=== PATIENT | male | born 1965 | race Caucasian/White ===

== ENCOUNTER → 2016-10-21 | Outpatient (CLI) | payer BC ==
--- NOTE | 2016-10-21 22:47 | MR ---
EXAMINATION TYPE: MR shoulder RT wo con DATE OF EXAM: 10/21/2016 5:57 PM COMPARISON: NONE HISTORY: 51-year-old male with right shoulder pain x 5 months, no trauma TECHNIQUE: Multiplanar, multisequence imaging of the right shoulder is performed without contrast. FINDINGS: The long head biceps tendon is intact. Subscapularis tendon is intact. There is mild to moderate degenerative joint space narrowing with marginal spurring and subchondral c hanges at the AC joint. No significant inferior spurring impinging onto the underlying rotator cuff. There is heterogeneous signal of both the supraspinatus and infraspinatus tendons with intermediate s ignal thickening especially along the posterior supraspinatus. There is a 6 mm long by 7 mm AP intras ubstance tear at the footprint of the posterior supraspinatus tendon fibers with possible bursal side d communication, coronal image 17 and sagittal image 6. There is trace thickening of the overlying subdeltoid bursa without fluid distention. No atrophy of the rotator cuff musculature. There is a tear of the superior labrum which extends back and around by 180 degrees to the inferior l abrum where a multilocular paralabral cyst is present measuring up to 1.7 cm long and 0.7 mm thick, c oronal T2 FS image 19. There is some mild edema within the axillary recess but no abnormal thickening of the coracohumeral ligament. There is suggestion of a ganglion cyst approaching the suprascapular notch measuring 1.3 x 0.6 cm. Evaluation of the glenohumeral joint shows moderate irregular posterior cartilage thinning and joint space narrowing. Physiologic joint fluid is present. No suspicious bone marrow replacement. Red marrow reconversion is present and can be seen with anemia , obesity, smoking, chronic disease. No Hill-Sachs deformity or os acromiale. IMPRESSION: 1. Supraspinatus and infraspinatus tendinosis, greatest along the posterior supraspinatus tendon wher e an intrasubstance tear at the footprint measures 6 mm long and 7 mm AP dimension. There may be a sm all bursal sided communication of the tear. 2. Large SLAP tear extending back and around 180 degrees. There is a 1.3 cm long ganglion cyst which extends towards the suprascapular notch and additional multilocular 1.7 cm paralabral cyst inferiorly . 3. Underlying glenohumeral joint osteoarthrosis with moderate cartilage thinning and joint space narr owing posteriorly. 4. Moderate AC joint osteoarthrosis.
== END | disposition home or self-care (01) ==
LOC: RADMRIMAIN 17:04
PROVIDERS: ATTEND Family Medicine
DX: S43.431A Superior glenoid labrum lesion of right shoulder, initial encounter (principal); M67.411 Ganglion, right shoulder; M67.813 Other specified disorders of tendon, right shoulder; M19.011 Primary osteoarthritis, right shoulder

== ENCOUNTER 2018-11-04 08:37 | Day surgery (SDC) | payer BC ==
[2018-11-02 15:49] VITALS: BMI 26.9
[~2018-11-04 08:37] MED LIST: LACTATED RINGERS 1,000 ML IV SCH
[2018-11-04 08:57] VITALS: RESP 16; TEMP 97.3
[2018-11-04] MEDS ORDERED: LIDOCAINE 1% 20 ML VIAL (10MG/ML) FOR IV START INTRADERMA ONE (09:00)
[2018-11-04] MEDS ORDERED: PROPOFOL 10 MG/ML 20 ML VIAL IV ONE (09:41)
[2018-11-04] MEDS ORDERED: LIDOCAINE 1% INJ 10MG/ML (20 ML MDV) ONE (09:41)
--- NOTE | 2018-11-04 10:07 | P.PCN ---
Date of Procedure: 11/04/18 Procedure(s) Performed: Brief history: Patient is a pleasant 53-year-old white male, scheduled for an elective upper endoscopy as well as colonoscopy as a part of evaluation of ascending history of GERD and screening for colorectal neoplasia. Procedure performed: Esophagogastroduodenoscopy with biopsy Colonoscopy Preoperative diagnosis: Long-standing history of GERD Screening for colon cancer Anesthesia: MAC Procedure: After informed consent was obtained from the patient was brought into the endoscopy unit and IV sedation was administered by anesthesia under continuous monitoring. Initially upper endoscopy was done. The Olympus GF 160 video endoscope was inserted inserted into the mouth and esophagus intubated without any difficulty and was gradually advanced into the stomach and duodenum and carefully examined. The bulb and second part of the duodenum appeared normal. The scope was then withdrawn into the stomach adequately insufflated with air and upon careful examination the antrum had mild gastritis and biopsies were done from this area. The body, cardia and fundus appeared normal. The scope was then withdrawn into the esophagus. The GE junction was located at 38 cm to the incisors. Moderate size hiatal hernia noted. There was long segment of Rodriguez's esophagus and from 36-38 cm from the incisors and proximal to this there were linear erosions or ulcerations consistent with LA grade C reflux esophagitis. Multiple biopsies were done from the segment of Rodriguez's esophagus. Rest of the esophagus appeared normal. Patient tolerated the procedure well. At this time the patient continued to remain sedation. Initial digital rectal examination was normal. Olympus CF 160 video colonoscope was then inserted into the rectum and gradually advanced to the cecum without any difficulty. Careful examination was performed as the scope was gradually being withdrawn. The prep was excellent. The cecum, ascending colon, transverse colon, descending colon, sigmoid colon and rectum appeared normal. scattered right-sided diverticulosis. Retroflexion was performed in the rectum and no lesions were noted. Patient tolerated the procedure well. Impression: 1. 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 Colonoscopy revealed scattered sigmoid diverticulosis but no evidence of colitis or colorectal neoplasia Recommendations: Findings of this examination were discussed with the patient as well as his family. He was advised to follow with the biopsy results. He was given a prescription for Prilosec 20 mg twice daily for 8 weeks following which once daily as maintenance for severe reflux esophagitis. If the biopsy shows evidence of Rodriguez's esophagus, he can have a repeat surveillance upper endoscopy in 2 years. He can have a repeat screening colonoscopy in 10 years
[2018-11-04 10:35] VITALS: BP 115/74; PULSE 61
== END 2018-11-04 10:55 | disposition home or self-care (01) ==
LOC: ORWHC2ENDO 08:37
PROVIDERS: ATTEND Internal Medicine Gastroenterology
DX: Z12.11 Encounter for screening for malignant neoplasm of colon (principal); K29.50 Unspecified chronic gastritis without bleeding; K22.70 Barrett's esophagus without dysplasia; K44.9 Diaphragmatic hernia without obstruction or gangrene; K21.9 Gastro-esophageal reflux disease without esophagitis; K57.30 Diverticulosis of large intestine without perforation or abscess without bleeding; Z87.891 Personal history of nicotine dependence; G25.81 Restless legs syndrome; Z79.899 Other long term (current) drug therapy; Z88.6 Allergy status to analgesic agent
CPT/HCPCS: 88305; 43239; J2001; J2704; G0121